=== PATIENT | male | born 1985 | race Caucasian/White ===

== ENCOUNTER 2023-01-06 18:24 | Emergency (ER) | payer OTHER ==
[~2023-01-06] VITALS: Ht 182.9 cm; Wt 95.0 kg
[2023-01-06 18:51] VITALS: BP 135/94
== END 2023-01-06 21:35 | disposition home or self-care (01) ==
LOC: ER 18:24
DX: S83.92XA Sprain of unspecified site of left knee, initial encounter (principal); S60.511A Abrasion of right hand, initial encounter; W94.12XA Exposure to other prolonged low air pressure, initial encounter; Y93.89 Activity, other specified; Y92.89 Other specified places as the place of occurrence of the external cause; Y99.8 Other external cause status
CPT/HCPCS: 73130; 73562